=== PATIENT | male | born 1965 | race Caucasian/White ===

== ENCOUNTER 2017-09-18 18:10 | Inpatient (IN) | payer OTHER, SELFPAY ==
[2017-09-18] VITALS (17 sets, daily range): BP systolic 81–127; BP diastolic 53–79; PULSE 71–86; RESP 12–19; TEMP 36.5–36.7; O2SAT 93–100; BMI 33.5; BMI 33.6; BMI 33.7
--- NOTE | 2017-09-18 18:32 | CT_ITS ---
STUDY: CT BRAIN WITHOUT CONTRAST REASON FOR EXAM: Male, 52 years old. Weakness. Hyperglycemia. RADIATION DOSAGE (If Supplied By Facility): CTDIvol = ( 44.99 ) mGy, DLP = ( 846.73 ) mGycm TECHNIQUE: Transaxial CT imaging of the brain was performed without administration of intravenous contrast material. Individualized dose optimization techniques were used for this CT. COMPARISON: None. FINDINGS: There is no definite acute abnormality. There is diffuse mild symmetric atrophy. There is atrophy of the posterior fossa structures. There is diffuse small vessel ischemic disease of the white matter. There is no definite acute infarct. There is no bleed. There is no gross mass, mass effect, or midline shift. There is no acute abnormality of the skull. No fractures. Grossly normal orbits. Grossly normal sinuses. CT/Brain/Head without Contrast IMPRESSION: Chronic age related changes and atrophy. No acute abnormality. Electronically Signed: Ciaran Velazquez MD at 19:42 EDT , Service support ,
--- NOTE | 2017-09-18 18:32 | RAD_ITS ---
STUDY: X-RAY CHEST REASON FOR EXAM: Male, 52 years old. General weakness and hyperglycemia. TECHNIQUE: Single AP portable view of the chest. COMPARISON: None. FINDINGS: The lungs are clear and expanded. Minimal scar across the left lung base. There is no demonstrated pleural abnormality. Normal size heart. Normal mediastinum and ivanna. Normal visualized pulmonary arteries. Normal visualized aortic arch and descending thoracic aorta. Normal visualized thoracic spine. Normal visualized ribs, clavicles, and shoulders. There is no demonstrated abnormality of the visualized soft tissue structures of the upper abdomen. RAD/Chest 1 View (Portable) IMPRESSION: Normal x-ray examination of the chest. Electronically Signed: Ciaran Velazquez MD at 18:53 EDT , Service support ,
--- NOTE | 2017-09-18 18:32 | EKG12_ITS ---
Test Reason : HYPERGLYCEMIA Blood Pressure : / mmHG Vent. Rate : 084 BPM Atrial Rate : 084 BPM P-R Int : 140 ms QRS Dur : 110 ms QT Int : 398 ms P-R-T Axes : 022 008 038 degrees QTc Int : 470 ms Normal sinus rhythm Normal ECG Confirmed by ARLENE QUIGLEY, NASIR ([id number]), editor magazine DONNA MERCER ([id number] on 09/20/2017 9:56:17 AM Referred By: MILADIS Confirmed By:NASIR JACOBS MD
[2017-09-18] MEDS: 0.9% Normal Saline 1,000 ML 999 ML IV (18:42)
[2017-09-18 18:50] LABS: Absolute Lymphocyte Count 1.62 X10^3/ul (0.83-4.51); Absolute Neutrophil Count 8.2 X10^3/uL (2.0-7.7); Basophil# 0.01 X10^3/uL; Basophil% 0.1 % (0-1); Eosinophil# 0.11 X10^3/uL; Hemoglobin 13.1 g/dl (13.0-16.5); Lymphocyte # 1.62 X10^3/ul (4.0); Lymphocyte % 15.1 % (19-41); Mean Corp Hgb Conc 32.8 g/gl (32-36); Mean Corpuscular Hgb 24.7 pg (27.0-32.0); Mean Corpuscular Volume 75.5 fL (80-94); Monocyte# 0.74 X10^3/uL; Monocyte% 6.9 % (0-10); Neutrophil # 8.23 X10^3/uL (2.7-7.7); Neutrophil % 76.5 % (47-70); Platelet Count 279 K/mm3 (150-450); RBC Distribution Width CV 14.9 % (11.6-14.6); RBC Distribution Width SD 40.4 fl (35.1-43.9); White Blood Count 10.8 K/mm3 (4.4-11.0)
[2017-09-18 18:53] LABS: POSITIVE COUNT NO; POSITIVE DIFFERENTIAL NO; POSITIVE MORPHOLOGY NO
[2017-09-18 19:04] LABS: International Normalized Ratio 1.1
[2017-09-18 19:05] LABS: Partial Thromboplast Time 26.4 Seconds (24.1-36.2)
[2017-09-18 19:07] LABS: ALB/GLOB Ratio 1.1 RATIO (0.9-2.4); AST(SGOT) 9 U/L (15-37); Alanine Aminotransfer ALT/SGPT 28 U/L (16-61); Albumin, Serum 3.4 g/dL (3.2-5.0); Alkaline Phosphatase 104 U/L (45-117); Anion Gap 11 (5-15); BUN 34 mg/dL (7-18); Calcium,Total 8.6 mg/dL (8.5-10.1); Chloride 104 mmol/L (98-107); Creatinine, Serum 1.79 mg/dL (0.70-1.30); EST Glomerular Filtration Rate 43 mL/min (>60); Est Glom Filt Rate - Afr Amer 51 mL/min (>60); Globulin 3.2 g/dL (2.2-4.2); Glucose 356 mg/dL (74-106); Potassium 4.5 mmol/L (3.5-5.1); Protein, Total 6.6 g/dL (6.4-8.2); Sodium Level 132 mmol/L (136-145)
[2017-09-18 19:11] LABS: Allen Test POS; Base Excess -12 mmol/L (-2 to +2); Bicarbonate 14.1 mmol/L (22-26); Blood Gas Specimen Type ART; O2 Delivery Device Room Air; PO2 82 mmHG (75-100); SITE R Radial; SO2 95 % (95-99); Time Given 1903; Total Carbon Dioxide 15 mmol/L; pCO2 29.6 mmHg (35-45); pH 7.29 (7.35-7.45)
[2017-09-18 19:21] LABS: Bacteria 0 SEEN /hpf (None Seen); Mucous, Urine 0 SEEN /hpf (<or=2+); Red Blood Cells-Urine 0 SEEN /hpf (0-5); Squamous Epithelial Cells - UA 0 SEEN /hpf (0-5); White Blood Cells 0 SEEN /hpf (0-5)
[2017-09-18 19:22] LABS: Color, Urine Yellow (Yellow); Glucose, Dipstick 250 mg/dl (Normal); Ketone-Dipstick 5 mg/dl (Negative); Leukocyte Esterase-Dipstick 25 /ul (Negative); Nitrite-Dipstick Negative (Negative); Occult Blood-Urine Negative /ul (Negative); Protein-Dipstick 100 mg/dl (Negative); Specific Gravity, Urine 1.025 (1.002-1.030); Urine Clarity Clear (Clear); Urine Urobilinogen Normal (Normal)
[2017-09-18 19:24] LABS: Urine Bilirubin Dipstick 1 mg/dL (Negative)
[2017-09-18 19:24] LABS: Lactic Acid 2.5 mmol/L (0.4-2.0)
[2017-09-18 19:27] LABS: Hyaline Cast 10-25 SEEN /lpf (0-5)
[2017-09-18 21:05] LABS: Bedside Glucose 339 mg/dL (70-110)
--- NOTE | 2017-09-18 21:28 | HP.PCM_ITS ---
Problem List (1) DKA (diabetic ketoacidoses) Status: Acute (2) Hyperglycemia Status: Acute (3) DMII (diabetes mellitus, type 2) Status: Acute (4) Lactic acid acidosis Status: Acute History of Present Illness Date of Admission: 09/18/17 Chief Complaint: Hyperglycemia The patient is a 52 year old male w/ h/o HTN, lipidemia, and DMII admitted for DKA. Pt has not been compliant w/ his meds for the past few weeks to months. His blood sugars have been in the 500s because he does not take his insulin. Today his sugar was greater than 600 and he doubled his short acting insulin and took his long acting insulin. However, he felt weak throughout the day. Nothing appeared to make it better or worse. He also has a headache. Headache was worse when he stood up. Slight improvement when he lied back down. Given that his fatigue was not improving, he went to the ED for further workup. No fever. No chill. No diarrhea. No rash. Past Medical History Allergies lisinopril Adverse Reaction (Verified 09/18/17 18:15) Other COUGH Home Medications: Ambulatory Orders Medication Instructions Recorded Albuterol Sulfate [Proair 90 mcg IH Q6H PRN PRN 09/18/17 [place]] Atorvastatin Calcium [Lipitor] 20 mg PO QHS 09/18/17 Carvedilol [Coreg] 25 mg PO BID 09/18/17 Cyanocobalamin (Vitamin B-12) 1,000 mcg PO DAILY 09/18/17 [Vitamin B-12] Ergocalciferol [Vitamin D] 50,000 unit PO QODAY 09/18/17 Fluticasone 0.05% [Flonase Nasal 1 spray NASAL DAILY 09/18/17 [place]] Furosemide 40 mg PO PRN PRN 09/18/17 Gabapentin [Neurontin] 300 mg PO TID 09/18/17 Insulin Degludec [Tresiba 20 unit SQ DAILY 09/18/17 Flextouch U-100] Insulin Lispro [Humalog] 20 unit SQ TID 09/18/17 [place] Carbonate [Lithotab, 300 mg PO DAILY 09/18/17 [place]] Losartan Potassium [Cozaar] 100 mg PO DAILY 09/18/17 Metformin HCl [Glucophage] 1,000 mg PO BIDCM 09/18/17 Metoclopramide [Reglan] 10 mg PO 4X/DAY 09/18/17 Omeprazole 20 mg PO DAILY 09/18/17 Sertraline HCl [Zoloft] 75 mg PO DAILY 09/18/17 Spironolactone 25 mg PO DAILY 09/18/17 Zolpidem Tartrate [Ambien 5 mg PO QHS PRN PRN 09/18/17 (Generic)] Surgical History: no surgical history Lives: Spouse/ Significant Other Smoking Status: Never smoker Alcohol: None Drugs: None - *Family History Maternal History Items: No pertinent history Review of Systems Constitutional: Reports: Malaise, Weakness, Fatigue. Denies: Chills, Fever, Weight Change HEENT: Denies: Head Aches, Sinus Congestion, Sinus Drainage Cardiovascular: Denies: Chest Pain, Palpitations Respiratory: Denies: Cough, Shortness of breath at rest, Sputum production Gastrointestinal: Denies: Abdominal Pain, Nausea, Vomiting Genitourinary: Denies: Dysuria Musculoskeletal: Denies: Joint Pain, Joint Tenderness Skin: Denies: Rash, Wounds Neurological: Denies: Numbness, Tingling, Focal weakness Psychiatric: Denies: Anxiety, Depression, Homicidal Ideations, Suicidal Ideations Hematologic/ Lymphatic: Denies: Easy Bruising, Easy Bleeding VTE Information - Inpt Only VTE Present on Admission: No VTE Mechan Device Prophylaxis: SCD's VTE Pharm Prophylaxis ordered?: Yes Patient Problems: Active and Suspected Problems DKA (diabetic ketoacidoses) (Acute) Hyperglycemia (Acute) DMII (diabetes mellitus, type 2) (Acute) Lactic acid acidosis (Acute) - Physical Exam General: Alert, Oriented x3, Cooperative HEENT: Atraumatic, PERRLA, EOMI, Normocephalic Neck: Supple, No JVD, Negative Carotid Bruits Lungs: Clear to auscultation, Normal air movement Cardiovascular: Regular rate, No murmurs Abdomen: Bowel Sounds Present, Soft, Non Tender Extremities: No edema, Capillary Refill Less than 3 Seconds Skin: No rashes, No breakdown Musculoskeletal: No Tenderness to Palpation of Joints or Extremities Neurological: Cranial nerves II-XII grossly intact Psych/Mental Status: Normal Affect, Appropriate Vital Signs Temp Pulse Resp BP Pulse Ox 97.7 F L 75 19 H 103/63 99 09/18/17 18:37 09/18/17 21:08 09/18/17 21:08 09/18/17 21:08 09/18/17 21:08 Oxygen Delivery Method Room Air Weight: 100 kg Body Mass Index (BMI) 33.5 Finger Stick Blood Glucose 339 Laboratory Tests Past 24 Hrs 09/18/17 09/18/17 09/18/17 18:37 18:37 18:37 WBC 10.8 RBC 5.30 Hgb 13.1 Hct 40.0 MCV 75.5 L MCH 24.7 L MCHC 32.8 RDW 14.9 H RDW Differential 40.4 Plt Count 279 MPV 10.0 Immature Gran % (Auto) 0.400 Neut % (Auto) 76.5 H Lymph % (Auto) 15.[address] % (Auto) 6.9 Eos % (Auto) 1.0 Baso % (Auto) 0.1 Absolute Neuts (auto) 8.2 H Absolute Lymphs (auto) 1.62 Total Counted Not Reportable PT 14.0 INR 1.1 APTT 26.4 Specimen Type Sample Site pH Bicarbonate Actual POC Total CO2 Base Excess O2 Saturation ABG pCO2 ABG pO2 Michael Test O2 Delivery Device Blood Gas Notified Whom Blood Gas Notified Time Sodium 132 L Potassium 4.5 Chloride 104 Carbon Dioxide 17.0 L Anion Gap 11 BUN 34 H Creatinine 1.79 H Estim Creat Clear Calc 46.70 Est GFR (MDRD) Af Amer 51 L Est GFR (MDRD) Non-Af 43 L BUN/Creatinine Ratio 19.0 Glucose 356 H Lactic Acid Calcium 8.6 Total Bilirubin 0.40 AST 9 L ALT 28 Alkaline Phosphatase 104 Troponin I < 0.015 Total Protein 6.6 Albumin 3.4 Globulin 3.2 Albumin/Globulin Ratio 1.1 Urine Color Urine Clarity Urine pH Ur Specific [place] Urine Protein Urine Glucose (UA) Urine Ketones Urine Occult Blood Urine Nitrite Urine Bilirubin Urine Urobilinogen Ur Leukocyte Esterase Urine RBC Urine WBC Ur Squamous Epith Cells Urine Bacteria Hyaline Casts Urine Mucus Acetone Level 09/18/17 09/18/17 09/18/17 18:37 18:37 19:05 WBC RBC Hgb Hct MCV MCH MCHC RDW RDW Differential Plt Count MPV Immature Gran % (Auto) Neut % (Auto) Lymph % (Auto) [facility] % (Auto) Eos % (Auto) Baso % (Auto) Absolute Neuts (auto) Absolute Lymphs (auto) Total Counted PT INR APTT Specimen Type ART Sample Site R Radial pH 7.29 L Bicarbonate Actual 14.1 L POC Total CO2 15 Base Excess -12 L O2 Saturation 95 ABG pCO2 29.6 L ABG pO2 82 Michael Test POS O2 Delivery Device Room Air Blood Gas Notified Whom ED Blood Gas Notified Time 190 Sodium Potassium Chloride Carbon Dioxide Anion Gap BUN Creatinine Estim Creat Clear Calc Est GFR (MDRD) Af Amer Est GFR (MDRD) Non-Af BUN/Creatinine Ratio Glucose Lactic Acid 2.5 H Calcium Total Bilirubin AST ALT Alkaline Phosphatase Troponin I Total Protein Albumin Globulin Albumin/Globulin Ratio Urine Color Urine Clarity Urine pH Ur Specific [place] Urine Protein Urine Glucose (UA) Urine Ketones Urine Occult Blood Urine Nitrite Urine Bilirubin Urine Urobilinogen Ur Leukocyte Esterase Urine RBC Urine WBC Ur Squamous Epith Cells Urine Bacteria Hyaline Casts Urine Mucus Acetone Level NEGATIVE 09/18/17 19:15 WBC RBC Hgb Hct MCV MCH MCHC RDW RDW Differential Plt Count MPV Immature Gran % (Auto) Neut % (Auto) Lymph % (Auto) [facility] % (Auto) Eos % (Auto) Baso % (Auto) Absolute Neuts (auto) Absolute Lymphs (auto) Total Counted PT INR APTT Specimen Type Sample Site pH Bicarbonate Actual POC Total CO2 Base Excess O2 Saturation ABG pCO2 ABG pO2 Michael Test O2 Delivery Device Blood Gas Notified Whom Blood Gas Notified Time Sodium Potassium Chloride Carbon Dioxide Anion Gap BUN Creatinine Estim Creat Clear Calc Est GFR (MDRD) Af Amer Est GFR (MDRD) Non-Af BUN/Creatinine Ratio Glucose Lactic Acid Calcium Total Bilirubin AST ALT Alkaline Phosphatase Troponin I Total Protein Albumin Globulin Albumin/Globulin Ratio Urine Color Yellow Urine Clarity Clear Urine pH 5.0 Ur Specific [place] 1.025 Urine Protein 100 H Urine Glucose (UA) 250 H Urine Ketones 5 H Urine Occult Blood Negative Urine Nitrite Negative Urine Bilirubin 1 H Urine Urobilinogen Normal Ur Leukocyte Esterase 25 H Urine RBC 0 SEEN Urine WBC 0 SEEN Ur Squamous Epith Cells 0 SEEN Urine Bacteria 0 SEEN Hyaline Casts 10-25 SEEN Urine Mucus 0 SEEN Acetone Level POC Glucose 09/18/17 21:01 POC Glucose 339 H Assessment/Plan All Active Problems DKA (diabetic ketoacidoses) (Acute) Hyperglycemia (Acute) DMII (diabetes mellitus, type 2) (Acute) Lactic acid acidosis (Acute) 52 year old male w/ h/o HTN, lipidemia, and DMII admitted for DKA. 1) DKA: Early DKA noted. Urine disclosed ketones. Metabolic acidosis noted. Hyperglycemia noted. Will start insulin gtt. Aggressive hydration. Serial labs. 2) Lactic acidosis: Probably secondary to hypoperfusion secondary to hypovolemia secondary to osmotic diuresis. Hydration. Cultures pending. No antibiotic at this time given no e/o infection. 3) DMII: Will resume home insulin when off insulin gtt. Monitor. 4) HTN: Resume home meds once SBP improves. Monitor. 5) Hypokalemia: Replaced. Serial labs. 6) Prophylaxis: SCD / heparin.
[2017-09-18 21:42] LABS: Reflex Lactate? Y
[2017-09-18 22:31] LABS: Bedside Glucose 399 mg/dL (70-110)
[2017-09-18] MEDS: 0.9% NaCl Peripheral Flush Adult/Peds IV (23:10)
[2017-09-18] MEDS: Heparin Injection (Vial) 5,000 UNIT/ML VIAL 5000 UNIT SC (23:11)
[2017-09-18] MEDS: 0.9% Normal Saline 1,000 ML 250 ML IV (23:11)
[2017-09-18 23:24] LABS: Hematocrit 26.3 % (40-54); Hemoglobin 8.5 g/dl (13.0-16.5); Mean Corp Hgb Conc 32.3 g/gl (32-36); Mean Corpuscular Hgb 24.8 pg (27.0-32.0); Mean Corpuscular Volume 76.7 fL (80-94); Mean Platelet Vol. 9.5 fl (6.2-12.0); Platelet Count 185 K/mm3 (150-450); RBC Distribution Width SD 42.3 fl (35.1-43.9); Red Blood Count 3.43 M/mm3 (4.6-6.2); Scan Indicated on CBC? Y/N NO; White Blood Count 7.7 K/mm3 (4.4-11.0)
[2017-09-18 23:26] LABS: Anion Gap 11 (5-15); BUN 34 mg/dL (7-18); BUN/Creat Ratio 22.5 RATIO (10-20); Calcium,Total 7.2 mg/dL (8.5-10.1); Chloride 112 mmol/L (98-107); Creatinine, Serum 1.51 mg/dL (0.70-1.30); EST Glomerular Filtration Rate 52 mL/min (>60); Est Glom Filt Rate - Afr Amer 63 mL/min (>60); Estimated Creatinine Clearance 55.36 ml/min; Glucose 373 mg/dL (74-106); Sodium Level 140 mmol/L (136-145)
[2017-09-18 23:36] LABS: Bedside Glucose 401 mg/dL (70-110)
[2017-09-18] MEDS: Gabapentin 300 MG Capsule PO (23:36)
[2017-09-18] MEDS: Atorvastatin Calcium 20 MG Tablet PO (23:37)
[2017-09-18] MEDS: Metoclopramide 10 MG Tablet PO (23:37)
[2017-09-18 23:46] LABS: Anion Gap 10 (5-15); BUN 37 mg/dL (7-18); BUN/Creat Ratio 20.6 RATIO (10-20); Calcium,Total 8.3 mg/dL (8.5-10.1); Chloride 107 mmol/L (98-107); EST Glomerular Filtration Rate 42 mL/min (>60); Est Glom Filt Rate - Afr Amer 51 mL/min (>60); Estimated Creatinine Clearance 46.44 ml/min; Glucose 412 mg/dL (74-106); Potassium 4.6 mmol/L (3.5-5.1); Sodium Level 134 mmol/L (136-145)
[2017-09-18 23:47] LABS: Lactic Acid 2.5 mmol/L (0.4-2.0)
[2017-09-19] VITALS (14 sets, daily range): BP systolic 97–131; BP diastolic 67–96; PULSE 67–88; RESP 12–75; TEMP 36.3–36.7; O2SAT 95–99
[2017-09-19 00:10] LABS: M R Staph aureus DNA By PCR Negative (Negative); Probe Check PASS; Specimen Processing Control PASS
[2017-09-19] MEDS: Carvedilol 25 MG Tablet PO ×2 (00:43→09:16)
[2017-09-19 01:46] LABS: Bedside Glucose 341 mg/dL (70-110)
[2017-09-19 02:50] LABS: Bedside Glucose 363 mg/dL (70-110)
[2017-09-19 03:10] LABS: Bedside Glucose 283 mg/dL (70-110)
[2017-09-19 03:19] LABS: Anion Gap 9 (5-15); BUN 36 mg/dL (7-18); BUN/Creat Ratio 23.8 RATIO (10-20); Chloride 111 mmol/L (98-107); Creatinine, Serum 1.51 mg/dL (0.70-1.30); EST Glomerular Filtration Rate 52 mL/min (>60); Est Glom Filt Rate - Afr Amer 63 mL/min (>60); Estimated Creatinine Clearance 55.36 ml/min; Glucose 288 mg/dL (74-106); Potassium 4.5 mmol/L (3.5-5.1); Sodium Level 139 mmol/L (136-145)
[2017-09-19 03:50] LABS: Bedside Glucose 232 mg/dL (70-110)
[2017-09-19 04:40] LABS: Bedside Glucose 215 mg/dL (70-110)
[2017-09-19 05:40] LABS: Bedside Glucose 148 mg/dL (70-110)
[2017-09-19] MEDS: Heparin Injection (Vial) 5,000 UNIT/ML VIAL 5000 UNIT SC (06:18)
[2017-09-19] MEDS: Gabapentin 300 MG Capsule PO (06:18)
[2017-09-19 06:21] LABS: Anion Gap 8 (5-15); BUN 34 mg/dL (7-18); BUN/Creat Ratio 25.4 RATIO (10-20); Calcium,Total 8.2 mg/dL (8.5-10.1); Chloride 114 mmol/L (98-107); Creatinine, Serum 1.34 mg/dL (0.70-1.30); EST Glomerular Filtration Rate 59 mL/min (>60); Est Glom Filt Rate - Afr Amer 72 mL/min (>60); Estimated Creatinine Clearance 62.39 ml/min; Glucose 154 mg/dL (74-106); Sodium Level 141 mmol/L (136-145)
[2017-09-19 06:49] LABS: Bedside Glucose 139 mg/dL (70-110)
[2017-09-19] MEDS: 0.9% Normal Saline 1,000 ML 150 ML IV (07:56)
[2017-09-19 08:00] LABS: Bedside Glucose 166 mg/dL (70-110)
[2017-09-19] MEDS: Insulin Lispro 100 UNIT/ML INSULN.PEN 20 UNIT SC (08:07)
--- NOTE | 2017-09-19 08:41 | PCM.PN.HOSP ---
Patient Problems: Active and Suspected Problems DKA (diabetic ketoacidoses) (Acute) Hyperglycemia (Acute) DMII (diabetes mellitus, type 2) (Acute) Lactic acid acidosis (Acute) Subjective: Feeling well. Patient states that he is essentially been in denial about his diabetes and checking his blood sugar when he feels like it and not taking his insulin schedule. Patient Aly was understanding of the consequences of not following his diabetes appropriately in the short-term as well as long-term. Vitals/I&O's: Vital Signs Temp Pulse Resp BP Pulse Ox 36.3 C L 67 12 111/73 99 09/19/17 08:00 09/19/17 08:00 09/19/17 08:00 09/19/17 08:00 09/19/17 08:00 Oxygen Delivery Method Room Air Weight: 101.2 kg Body Mass Index (BMI) 33.6 Finger Stick Blood Glucose 148 Intake and Output for Last 24 Hours 09/17/17 09/18/17 09/19/17 23:59 23:59 23:59 Intake Total 125 / 125 1821 / 1821 Output Total 0 / 0 400 / 400 Balance 125 / 125 1421 / 1421 General: Alert, No apparent distress HEENT: Atraumatic, Normocephalic Psych/Mental Status: Normal Affect, Appropriate Laboratory Results 09/18/17 22:10: MRSA (PCR) Negative 09/18/17 22:25: POC Glucose 399 H 09/18/17 22:30: Troponin I < 0.015 09/18/17 22:30: Sodium 140, Potassium 4.0, Chloride 112 H, Carbon Dioxide 17.0 L, Anion Gap 11, BUN 34 H, Creatinine 1.51 H, Estim Creat Clear Calc 55.36, Est GFR (MDRD) Af Amer 63, Est GFR (MDRD) Non-Af 52 L, BUN/Creatinine Ratio 22.5 H, Glucose 373 H, Calcium 7.2 L 09/18/17 23:00: Lactic Acid 2.5 H 09/18/17 23:00: Sodium 134 L, Potassium 4.6, Chloride 107, Carbon Dioxide 17.0 L, Anion Gap 10, BUN 37 H, Creatinine 1.80 H, Estim Creat Clear Calc 46.44, Est GFR (MDRD) Af Amer 51 L, Est GFR (MDRD) Non-Af 42 L, BUN/Creatinine Ratio 20.6 H, Glucose 412 H, Calcium 8.3 L, Troponin I < 0.015 09/18/17 23:00: WBC 7.7, RBC 3.43 L, Hgb 8.5 L, Hct 26.3 L, MCV 76.7 L, MCH 24.8 L, MCHC 32.3, RDW 15.0 H, RDW Differential 42.3, Plt Count 185, MPV 9.5 09/18/17 23:27: POC Glucose 401 H 09/19/17 00:42: POC Glucose 363 H 09/19/17 01:39: POC Glucose 341 H 09/19/17 02:48: POC Glucose 283 H 09/19/17 02:50: Sodium 139, Potassium 4.5, Chloride 111 H, Carbon Dioxide 19.0 L, Anion Gap 9, BUN 36 H, Creatinine 1.51 H, Estim Creat Clear Calc 55.36, Est GFR (MDRD) Af Amer 63, Est GFR (MDRD) Non-Af 52 L, BUN/Creatinine Ratio 23.8 H, Glucose 288 H, Calcium 8.0 L, Troponin I < 0.015 09/19/17 03:46: POC Glucose 232 H 09/19/17 04:32: POC Glucose 215 H 09/19/17 05:00: Sodium 141, Potassium 4.0, Chloride 114 H, Carbon Dioxide 19.0 L, Anion Gap 8, BUN 34 H, Creatinine 1.34 H, Estim Creat Clear Calc 62.39, Est GFR (MDRD) Af Amer 72, Est GFR (MDRD) Non-Af 59 L, BUN/Creatinine Ratio 25.4 H, Glucose 154 H, Calcium 8.2 L 09/19/17 05:32: POC Glucose 148 H 09/19/17 06:44: POC Glucose 139 H 09/19/17 07:52: POC Glucose 166 H Current Medications Albuterol Sulfate (Ventolin Aerosols) 2.5 mg INHALATION Q4H PRN PRN PRN Reason: SOB &/OR WHEEZING Atorvastatin Calcium (Lipitor) 20 mg PO QHS [facility] Last Admin: 09/18/17 23:37 Dose: 20 mg Carvedilol (Coreg) 25 mg PO BID [facility] Last Admin: 09/19/17 00:43 Dose: 25 mg Cyanocobalamin (Vitamin B12) 1,000 mcg PO DAILY [facility] Dextrose (D50w Syringe) 0 gm IV X1 PRN; Protocol PRN Reason: AGITATION Ergocalciferol (Vitamin D) 50,000 unit PO UD [facility] Fluticasone Propionate (Flonase Nasal [place]) 1 spray NASAL DAILY [facility] Gabapentin (Neurontin) 300 mg PO TID [facility] Last Admin: 09/19/17 06:18 Dose: 300 mg Heparin Sodium (Porcine) (Heparin Na) 5,000 unit SC Q8 [facility] Last Admin: 09/19/17 06:18 Dose: 5,000 units Sodium Chloride () 1,000 mls @ 150 mls/hr IV .Q6H40M [facility] Last Admin: 09/19/17 07:56 Dose: 150 mls/hr Insulin Glargine (Lantus (Bkc)) 20 units SC DAILY [facility] Insulin Human Lispro (Humalog Kwikpen (Bkc)) 20 unit SC 0800,1200,1700 [facility] Last Admin: 09/19/17 08:07 Dose: 20 u Metoclopramide HCl (Reglan) 10 mg PO 4X/DAY [facility] Last Admin: 09/18/17 23:37 Dose: 10 mg Pantoprazole Sodium (Protonix) 20 mg PO DAILY [facility] Sertraline HCl (Zoloft) 75 mg PO DAILY [facility] Sodium Chloride () 5 - 30 ml IV UD PRN PRN Reason: SALINE FLUSH Last Admin: 09/18/17 23:10 Dose: 10 ml Zolpidem Tartrate (Ambien (Generic)) 5 mg PO QHS PRN PRN PRN Reason: SLEEP Medical Necessity - Tobacco Use Smoking Status: Never smoker Tobacco Use: Non-smoker Assessment/Plan All Active Problems DKA (diabetic ketoacidoses) (Acute) Hyperglycemia (Acute) DMII (diabetes mellitus, type 2) (Acute) Lactic acid acidosis (Acute) 1. Diabetic ketoacidosis Secondary to noncompliance. Try to address barriers for the patient in regards to why he is not taking his insulin as he should. Poorly seemed that the patient is just in denial and perhaps thinking that he can just get over it. Expressed that the patient already has long-term comp occasions with diabetic neuropathy in his feet. Explained to him the other additional consequences in regards to kidney failure and heart disease amongst others. Told him that many of the long-term consequences of uncontrolled diabetes are irreversible but being on a proper regimen of insulin and with controlled blood sugars would help at least slow the progression of other processes. Patient expressed understanding of that and x-rays that he wishes to be more compliant. He states that he would like to follow-up with endocrinology. I will provide the patient some information to follow-up with nurse practitioner here over at the [facility] in regards to managing his diabetes. 2. Acute kidney injury Likely prerenal as patient's creatinine was 1.79 upon admission. Currently is 1.34 which qualifies patient is chronic kidney disease stage III. Outpatient follow-up in regards to the patient's labs as outpatient. 3. Anemia And had a drop in Ceclor from 13.1-8.5. I suspect that prior both these are lab air is a feel that both the white blood cells and platelets did drop down considerably. Though it should be noted that did appear to be microcytic on his parameters. Have patient get this followed up but also additional iron studies and for his primary care doctor.
--- NOTE | 2017-09-19 08:47 | PN_ITS ---
Patient Problems: Active and Suspected Problems DKA (diabetic ketoacidoses) (Acute) Hyperglycemia (Acute) DMII (diabetes mellitus, type 2) (Acute) Lactic acid acidosis (Acute) Subjective: Feeling well. Patient states that he is essentially been in denial about his diabetes and checking his blood sugar when he feels like it and not taking his insulin schedule. Patient Aly was understanding of the consequences of not following his diabetes appropriately in the short-term as well as long-term. Vitals/I&O's: Vital Signs Temp Pulse Resp BP Pulse Ox 36.3 C L 67 12 111/73 99 09/19/17 08:00 09/19/17 08:00 09/19/17 08:00 09/19/17 08:00 09/19/17 08:00 Oxygen Delivery Method Room Air Weight: 101.2 kg Body Mass Index (BMI) 33.6 Finger Stick Blood Glucose 148 Intake and Output for Last 24 Hours 09/17/17 09/18/17 09/19/17 23:59 23:59 23:59 Intake Total 125 / 125 1821 / 1821 Output Total 0 / 0 400 / 400 Balance 125 / 125 1421 / 1421 General: Alert, No apparent distress HEENT: Atraumatic, Normocephalic Psych/Mental Status: Normal Affect, Appropriate Laboratory Results 09/18/17 22:10: MRSA (PCR) Negative 09/18/17 22:25: POC Glucose 399 H 09/18/17 22:30: Troponin I < 0.015 09/18/17 22:30: Sodium 140, Potassium 4.0, Chloride 112 H, Carbon Dioxide 17.0 L , Anion Gap 11, BUN 34 H, Creatinine 1.51 H, Estim Creat Clear Calc 55.36, Est GFR (MDRD) Af Amer 63, Est GFR (MDRD) Non-Af 52 L, BUN/Creatinine Ratio 22.5 H, Glucose 373 H, Calcium 7.2 L 09/18/17 23:00: Lactic Acid 2.5 H 09/18/17 23:00: Sodium 134 L, Potassium 4.6, Chloride 107, Carbon Dioxide 17.0 L , Anion Gap 10, BUN 37 H, Creatinine 1.80 H, Estim Creat Clear Calc 46.44, Est GFR (MDRD) Af Amer 51 L, Est GFR (MDRD) Non-Af 42 L, BUN/Creatinine Ratio 20.6 H , Glucose 412 H, Calcium 8.3 L, Troponin I < 0.015 09/18/17 23:00: WBC 7.7, RBC 3.43 L, Hgb 8.5 L, Hct 26.3 L, MCV 76.7 L, MCH 24.8 L, MCHC 32.3, RDW 15.0 H, RDW Differential 42.3, Plt Count 185, MPV 9.5 09/18/17 23:27: POC Glucose 401 H 09/19/17 00:42: POC Glucose 363 H 09/19/17 01:39: POC Glucose 341 H 09/19/17 02:48: POC Glucose 283 H 09/19/17 02:50: Sodium 139, Potassium 4.5, Chloride 111 H, Carbon Dioxide 19.0 L , Anion Gap 9, BUN 36 H, Creatinine 1.51 H, Estim Creat Clear Calc 55.36, Est GFR (MDRD) Af Amer 63, Est GFR (MDRD) Non-Af 52 L, BUN/Creatinine Ratio 23.8 H, Glucose 288 H, Calcium 8.0 L, Troponin I < 0.015 09/19/17 03:46: POC Glucose 232 H 09/19/17 04:32: POC Glucose 215 H 09/19/17 05:00: Sodium 141, Potassium 4.0, Chloride 114 H, Carbon Dioxide 19.0 L , Anion Gap 8, BUN 34 H, Creatinine 1.34 H, Estim Creat Clear Calc 62.39, Est GFR (MDRD) Af Amer 72, Est GFR (MDRD) Non-Af 59 L, BUN/Creatinine Ratio 25.4 H, Glucose 154 H, Calcium 8.2 L 09/19/17 05:32: POC Glucose 148 H 09/19/17 06:44: POC Glucose 139 H 09/19/17 07:52: POC Glucose 166 H Current Medications Albuterol Sulfate (Ventolin Aerosols) 2.5 mg INHALATION Q4H PRN PRN PRN Reason: SOB &/OR WHEEZING Atorvastatin Calcium (Lipitor) 20 mg PO QHS [facility] Last Admin: 09/18/17 23:37 Dose: 20 mg Carvedilol (Coreg) 25 mg PO BID [facility] Last Admin: 09/19/17 00:43 Dose: 25 mg Cyanocobalamin (Vitamin B12) 1,000 mcg PO DAILY [facility] Dextrose (D50w Syringe) 0 gm IV X1 PRN; Protocol PRN Reason: AGITATION Ergocalciferol (Vitamin D) 50,000 unit PO UD [facility] Fluticasone Propionate (Flonase Nasal [place]) 1 spray NASAL DAILY [facility] Gabapentin (Neurontin) 300 mg PO TID [facility] Last Admin: 09/19/17 06:18 Dose: 300 mg Heparin Sodium (Porcine) (Heparin Na) 5,000 unit SC Q8 [facility] Last Admin: 09/19/17 06:18 Dose: 5,000 units Sodium Chloride () 1,000 mls @ 150 mls/hr IV .Q6H40M [facility] Last Admin: 09/19/17 07:56 Dose: 150 mls/hr Insulin Glargine (Lantus (Bkc)) 20 units SC DAILY [facility] Insulin Human Lispro (Humalog Kwikpen (Bkc)) 20 unit SC 0800,1200,1700 [facility] Last Admin: 09/19/17 08:07 Dose: 20 u Metoclopramide HCl (Reglan) 10 mg PO 4X/DAY [facility] Last Admin: 09/18/17 23:37 Dose: 10 mg Pantoprazole Sodium (Protonix) 20 mg PO DAILY [facility] Sertraline HCl (Zoloft) 75 mg PO DAILY [facility] Sodium Chloride () 5 - 30 ml IV UD PRN PRN Reason: SALINE FLUSH Last Admin: 09/18/17 23:10 Dose: 10 ml Zolpidem Tartrate (Ambien (Generic)) 5 mg PO QHS PRN PRN PRN Reason: SLEEP Medical Necessity - Tobacco Use Smoking Status: Never smoker Tobacco Use: Non-smoker Assessment/Plan All Active Problems DKA (diabetic ketoacidoses) (Acute) Hyperglycemia (Acute) DMII (diabetes mellitus, type 2) (Acute) Lactic acid acidosis (Acute) 1. Diabetic ketoacidosis * Secondary to noncompliance. * Try to address barriers for the patient in regards to why he is not taking his insulin as he should. Poorly seemed that the patient is just in denial and perhaps thinking that he can just get over it. Expressed that the patient already has long-term comp occasions with diabetic neuropathy in his feet. Explained to him the other additional consequences in regards to kidney failure and heart disease amongst others. Told him that many of the long-term consequences of uncontrolled diabetes are irreversible but being on a proper regimen of insulin and with controlled blood sugars would help at least slow the progression of other processes. Patient expressed understanding of that and x-rays that he wishes to be more compliant. * He states that he would like to follow-up with endocrinology. I will provide the patient some information to follow-up with nurse practitioner here over at the [facility] in regards to managing his diabetes. 2. Acute kidney injury * Likely prerenal as patient's creatinine was 1.79 upon admission. Currently is 1.34 which qualifies patient is chronic kidney disease stage III. * Outpatient follow-up in regards to the patient's labs as outpatient. 3. Anemia * And had a drop in Ceclor from 13.1-8.5. I suspect that prior both these are lab air is a feel that both the white blood cells and platelets did drop down considerably. Though it should be noted that did appear to be microcytic on his parameters. Have patient get this followed up but also additional iron studies and for his primary care doctor.
--- NOTE | 2017-09-19 08:50 | PCM.DC ---
- Discharge Diagnoses Current Active Problems: Current Active and Chronic Problems DKA (diabetic ketoacidoses) (Acute) Hyperglycemia (Acute) DMII (diabetes mellitus, type 2) (Acute) Lactic acid acidosis (Acute) You will use the following diet at home:: Calorie/Carbohydrate Controlled (specify 1200, 1400, etc) - 1800 kcal/day Your food should be the consistency of: Regular Your liquids should be the consistency of: Regular/Thin Discharge Activity: Return to Normal Activity Call your doctor if you observe: Fever of 101 or Higher, Fainting spells, - - uncontrolled blood sugars Instructions: What Is Type 2 Diabetes?, How to Check Your Blood Sugar, Using Injected Insulin, Diabetes: Understanding Carbohydrates, Eating Out When You Have Diabetes, Diabetes: Inspecting Your Feet, Diabetes: Keeping Feet Healthy, Diabetes: Sick-Day Plan, Diabetes and Kidney Disease Allergies/Adverse Reactions: Allergies lisinopril Adverse Reaction (Verified 09/18/17 18:15) Other COUGH Medications to take at Discharge Albuterol Sulfate [Proair Respiclick] 90 mcg IH Q6H PRN PRN 09/18/17 Atorvastatin Calcium [Lipitor] 20 mg PO QHS 09/18/17 Carvedilol [Coreg (Beta Yulisa)] 25 mg PO BID 09/18/17 Cyanocobalamin (Vitamin B-12) [Vitamin B-12] 1,000 mcg PO DAILY 09/18/17 Ergocalciferol [Vitamin D] 50,000 unit PO QODAY 09/18/17 Fluticasone 0.05% [Flonase Nasal [place]] 1 spray NASAL DAILY 09/18/17 Furosemide 40 mg PO PRN PRN 09/18/17 Gabapentin [Neurontin] 300 mg PO TID 09/18/17 Insulin Degludec [Tresiba Flextouch U-100] 20 unit SQ DAILY 09/18/17 Insulin Lispro [Humalog] 20 unit SQ TID 09/18/17 [place] Carbonate [Eskalith] 300 mg PO DAILY 09/18/17 Losartan Potassium [Cozaar] 100 mg PO DAILY 09/18/17 Metformin HCl [Glucophage] 1,000 mg PO BIDCM 09/18/17 Metoclopramide [Reglan] 10 mg PO 4X/DAY 09/18/17 Omeprazole 20 mg PO DAILY 09/18/17 Sertraline HCl [Zoloft] 75 mg PO DAILY 09/18/17 Spironolactone 25 mg PO DAILY 09/18/17 Zolpidem Tartrate [Ambien] 5 mg PO QHS PRN PRN 09/18/17 Primary Care Physician: Dominique Martin MD [Primary Care Provider] - Within 2 Weeks Please Follow Up With: Lizz He [facility] CONSULTANT[facility]etrio[facility] - Endocrinology When: 2-4 weeks Proposed Discharge Date: 09/19/17
--- NOTE | 2017-09-19 08:54 | DS.PCM_ITS ---
Discharge Date and Diagnosis - Problem List Patient Problems: Active and Suspected Problems DKA (diabetic ketoacidoses) (Acute) Hyperglycemia (Acute) DMII (diabetes mellitus, type 2) (Acute) Lactic acid acidosis (Acute) Date of Admission: 09/18/17 Date of Discharge: 09/19/17 - Primary Discharge Diagnosis Active and Suspected Problems DKA (diabetic ketoacidoses) (Acute) Hyperglycemia (Acute) DMII (diabetes mellitus, type 2) (Acute) Lactic acid acidosis (Acute) Hospital Course and Treatment Imaging Results: Clinical Impression(s) from Imaging Studies Brain CT 09/18/17 18:32 IMPRESSION: Chronic age related changes and atrophy. No acute abnormality. Electronically Signed: Ciaran Velazquez MD at 19:42 EDT , Service support , Chest X-Ray 09/18/17 18:32 IMPRESSION: Normal x-ray examination of the chest. Electronically Signed: Ciaran Velazquez MD at 18:53 EDT , Service support , Operations: None Procedures: None Summary of Care Provided: The patient is a 52 year old M presents with DKA 1. Diabetic ketoacidosis * Secondary to noncompliance. * Try to address barriers for the patient in regards to why he is not taking his insulin as he should. Poorly seemed that the patient is just in denial and perhaps thinking that he can just get over it. Expressed that the patient already has long-term comp occasions with diabetic neuropathy in his feet. Explained to him the other additional consequences in regards to kidney failure and heart disease amongst others. Told him that many of the long-term consequences of uncontrolled diabetes are irreversible but being on a proper regimen of insulin and with controlled blood sugars would help at least slow the progression of other processes. Patient expressed understanding of that and x-rays that he wishes to be more compliant. * He states that he would like to follow-up with endocrinology. I will provide the patient some information to follow-up with nurse practitioner here over at the [facility] in regards to managing his diabetes. 2. Acute kidney injury * Likely prerenal as patient's creatinine was 1.79 upon admission. Currently is 1.34 which qualifies patient is chronic kidney disease stage III. * Outpatient follow-up in regards to the patient's labs as outpatient. 3. Anemia * And had a drop in Ceclor from 13.1-8.5. I suspect that prior both these are lab air is a feel that both the white blood cells and platelets did drop down considerably. Though it should be noted that did appear to be microcytic on his parameters. Have patient get this followed up but also additional iron studies and for his primary care doctor.[] Discharge Diet: 1800 Calorie Control Diet Discharge Activity: Return to Normal Activity Call your doctor if you observe: Fever of 101 or Higher, Fainting spells, - - uncontrolled blood sugars Home Medications: Medications to take at Discharge Albuterol Sulfate [Proair Respiclick] 90 mcg IH Q6H PRN PRN 09/18/17 Atorvastatin Calcium [Lipitor] 20 mg PO QHS 09/18/17 Carvedilol [Coreg (Beta Yulisa)] 25 mg PO BID 09/18/17 Cyanocobalamin (Vitamin B-12) [Vitamin B-12] 1,000 mcg PO DAILY 09/18/17 Ergocalciferol [Vitamin D] 50,000 unit PO QODAY 09/18/17 Fluticasone 0.05% [Flonase Nasal [place]] 1 spray NASAL DAILY 09/18/17 Furosemide 40 mg PO PRN PRN 09/18/17 Gabapentin [Neurontin] 300 mg PO TID 09/18/17 Insulin Degludec [Tresiba Flextouch U-100] 20 unit SQ DAILY 09/18/17 Insulin Lispro [Humalog] 20 unit SQ TID 09/18/17 [place] Carbonate [Eskalith] 300 mg PO DAILY 09/18/17 Losartan Potassium [Cozaar] 100 mg PO DAILY 09/18/17 Metformin HCl [Glucophage] 1,000 mg PO BIDCM 09/18/17 Metoclopramide [Reglan] 10 mg PO 4X/DAY 09/18/17 Omeprazole 20 mg PO DAILY 09/18/17 Sertraline HCl [Zoloft] 75 mg PO DAILY 09/18/17 Spironolactone 25 mg PO DAILY 09/18/17 Zolpidem Tartrate [Ambien] 5 mg PO QHS PRN PRN 09/18/17 Primary Care Physician: Dominique Martin MD [Primary Care Provider] - Within 2 Weeks Please Follow Up With: Lizz He TORCH SOLDERER-C - Endocrinology When: 2-4 weeks Patient Instructions: What Is Type 2 Diabetes?, How to Check Your Blood Sugar, Using Injected Insulin, Diabetes: Understanding Carbohydrates, Eating Out When You Have Diabetes, Diabetes: Keeping Feet Healthy, Diabetes: Inspecting Your Feet, Diabetes: Sick-Day Plan, Diabetes and Kidney Disease Disposition: Home Minutes spent on discharge:: 32 Patient Condition:: Fair Medical Necessity - Tobacco Use Smoking Status: Never smoker Tobacco Use: Non-smoker Meaningful Use Info Meaningful Use Diagnoses (Choose all that apply): None applicable Code Visit Inpatient E&M: 92903 Disch Hosp
[2017-09-19] MEDS: Fluticasone 0.05% 1 SPRAY NASAL.SRY NASAL (09:16)
[2017-09-19] MEDS: Cyanocobalamin 500 MCG Tablet 1000 MCG PO (09:16)
[2017-09-19] MEDS: Sertraline 50 MG Tablet 75 MG PO (09:16)
[2017-09-19] MEDS: Pantoprazole Sodium 20 MG Tablet PO (09:16)
--- NOTE | 2017-09-19 10:16 | CASEMGMT ---
Addendum entered by Ira Villarreal 09/19/17 11:23: WAYNE MOJICA NOTE: Called pt at home. Spoke with pt and and informed them of appt scheduled with [facility] on October 13 at 1000 and phone number to her office given. Also spoke with pt about [facility]. Pt states he would be interested in the Diabetic Clinic calling him to set up an appt. This WAYNE MOJICA spoke with [facility] and informed them pt would like for them to call him and they were given pt phone number. Pt also given [facility] diabetic Clinic info. Carmelina MCKENNA RN, CM Original Note: WAYNE MOJICA NOTE: Went to speak with pt re: discharge planning, however, pt has been discharged. Call to [facility] made. Appt made. Will follow up with patient re: appt and information on Diabetic Clinic. Carmelina MCKENNA RN, CM
== END 2017-09-19 10:00 | disposition home or self-care (01) | DRG 638 ==
LOC: ED 19:06 → ICU 21:54 → PCU 09-19 07:23
PROVIDERS: Admitting Provider Internal Medicine; Emergency Provider Emergency Medicine; Family Provider Family Medicine; PCP Family Medicine
DX: E11.10 Type 2 diabetes mellitus with ketoacidosis without coma (principal); N17.9 Acute kidney failure, unspecified; Z79.4 Long term (current) use of insulin; E11.40 Type 2 diabetes mellitus with diabetic neuropathy, unspecified; Z91.14 Patient's other noncompliance with medication regimen; E11.22 Type 2 diabetes mellitus with diabetic chronic kidney disease; N18.3 Chronic kidney disease, stage 3 (moderate); I12.9 Hypertensive chronic kidney disease with stage 1 through stage 4 chronic kidney disease, or unspecified chronic kidney disease
CPT/HCPCS: 36600; 70450; 71045; 80048; 80053; 81001; 82009; 82803; 82962; 83605; 84484; 85025; 85027; 85610; 85730; 87040; 87641; 93005; 99283; J7030; A4216

== ENCOUNTER 2017-10-20 22:40 | Emergency (ER) | payer OTHER, SELFPAY ==
[2017-10-20 22:40] VITALS: BP 161/96; PULSE 74; RESP 16; TEMP 36.2; O2SAT 100; BMI 34.9
--- NOTE | 2017-10-20 22:49 | ED.VISSUMM ---
- ER Visit Summary Date of Service: 10/20/17 Chief Complaint: Rash History of Present Illness: The patient is a 52 M who presents with a rash. He has had this for 2 weeks. He states it itches. He denies any exposures. He is not using anything for it at all. Denies any fevers. No bleeding. Physical Examination: Vital signs are reviewed. Skin exam reveals a rash on the trunk and arm. There is no petechia or purpura. Test Results: None performed Emergency Department Course and Treatment: Patient will be treated with hydrocortisone cream and Vistaril. I do not think steroids are prudent as he was just admitted for diabetic ketoacidosis. He will need to follow-up with his PCP Treatment Plan: [] Disposition: Discharge Impression: Dermatitis This note was generated with [employer] dictation software. It may contain incorrect words, spelling, and punctuation that were not noted in review of the chart prior to signing ED Disposition - Plan for ED Patient: Chief Complaint: Rash Referrals: Dominique Martin MD [Primary Care Provider] -
--- NOTE | 2017-10-20 22:50 | ED.DEP ---
ED Disposition - Plan for ED Patient: Disposition: Home or Assisted Living Chief Complaint: Rash Instructions: ED Dermatitis Non Specific Rash Prescriptions: Hydrocortisone 2.5% Crm [Hytone] 1 applic TOPICAL BID PRN PRN #1 tube PRN Reason: Rash/Topical Irritation Hydroxyzine Pamoate [Vistaril] 50 mg PO TID PRN PRN #30 cap PRN Reason: Itching Referrals: Dominique Martin MD [Primary Care Provider] -
== END 2017-10-20 23:06 | disposition home or self-care (01) ==
PROVIDERS: Emergency Provider Emergency Medicine; Family Provider Family Medicine; PCP Family Medicine
DX: L30.9 Dermatitis, unspecified (principal); E11.9 Type 2 diabetes mellitus without complications; Z79.4 Long term (current) use of insulin; Z79.899 Other long term (current) drug therapy
CPT/HCPCS: 99282

== ENCOUNTER → 2018-05-17 10:24 | Outpatient (CLI) | payer OTHER, SELFPAY ==
[2018-05-17 09:46] VITALS: BMI 34.0
[2018-05-17 11:10] LABS: AST(SGOT) 10 U/L (15-37); Alanine Aminotransfer ALT/SGPT 28 U/L (16-61); Albumin, Serum 3.6 g/dL (3.2-5.0); Alkaline Phosphatase 112 U/L (45-117); Anion Gap 7 (5-15); BUN 24 mg/dL (7-18); BUN/Creat Ratio 20.3 RATIO (10-20); Calcium,Total 9.3 mg/dL (8.5-10.1); Chloride 104 mmol/L (98-107); Cholesterol 149 mg/dL (200); Creatinine, Serum 1.18 mg/dL (0.70-1.30); EST Glomerular Filtration Rate 69 mL/min (>60); Est Glom Filt Rate - Afr Amer 83 mL/min (>60); Globulin 3.5 g/dL (2.2-4.2); Glucose 323 mg/dL (74-106); High Density Lipoprotein 37 mg/dL; Potassium 4.6 mmol/L (3.5-5.1); Protein, Total 7.1 g/dL (6.4-8.2); Sodium Level 134 mmol/L (136-145); Triglycerides 395 mg/dL; Very Low Density Lipoprotein 79 mg/dL (5-40)
[2018-05-17 11:13] LABS: Hemoglobin A1c 10.7 % (4.2-6.3); Microalbumin:Creatinine Ratio 366.7 mg/g CRE (<30 mg/g CRE)
== END ==
PROVIDERS: Family Provider Family Medicine; Referring Provider Nurse Practitioner; Visit Provider Nurse Practitioner
DX: E11.9 Type 2 diabetes mellitus without complications (principal)
CPT/HCPCS: 36415; 80053; 80061; 82043; 82570; 83036

== ENCOUNTER 2018-09-25 13:43 | Emergency (ER) | payer OTHER, SELFPAY ==
[2018-05-17 09:46] VITALS: BMI 34.0
[2018-09-25 13:45] VITALS: BP 122/68; PULSE 91; RESP 18; TEMP 36.3; O2SAT 94; BMI 35.0
[2018-09-25] MEDS: oxyCODONE 5 MG Tablet PO (14:27)
[2018-09-25 14:46] LABS: Bacteria 0 SEEN /hpf (None Seen); Mucous, Urine 0 SEEN /hpf (<or=2+); Red Blood Cells-Urine 0 SEEN /hpf (0-5); Squamous Epithelial Cells - UA 0 SEEN /hpf (0-5); White Blood Cells 0 SEEN /hpf (0-5)
[2018-09-25 14:50] LABS: Color, Urine Yellow (Yellow); Glucose, Dipstick 1000 mg/dl (Normal); Ketone-Dipstick Negative (Negative); Leukocyte Esterase-Dipstick 100 /ul (Negative); Nitrite-Dipstick Negative (Negative); Occult Blood-Urine Negative /ul (Negative); Protein-Dipstick 15 mg/dl (Negative); Specific Gravity, Urine 1.015 (1.002-1.030); Urine Bilirubin Dipstick Negative (Negative); Urine Clarity Clear (Clear); Urine Urobilinogen Normal (Normal)
--- NOTE | 2018-09-25 14:50 | ED.DCSUM_ITS ---
- ER Visit Summary Date of Service: 09/25/18 Chief Complaint: Difficulty urinating, penile pain History of Present Illness: The patient is a 53 M with multiple comorbidities who presents to the emergency department with difficulty with urination and penile pain. Patient states that he had aggressive oral sex about a week ago. He states after, he began to have some lesions that he noticed on his penis. He states they are very painful. He states that he is having a difficult time urinating because of pain. He denies any fevers or chills. He has no history of sexually transmitted disease. He is sexually active with single partner. Patient is an insulin on a diabetic. He states his blood sugars been running normally. Physical Examination: Vital signs reviewed General: Well-nourished, well-developed Head: Normocephalic, atraumatic Eyes: Pupils equal and reactive, extraocular muscles intact Neck, supple, no lymphadenopathy Heart: Regular rate and rhythm Respiratory: No distress, clear bilaterally Abdomen: Soft, nontender, nondistended, no peritoneal signs : Patient has multiple small vesicular lesions on the shaft of the penis Consistent with herpes. Back: Nontender Extremities: Nontender, no edema, no cords Skin: Normal color no rash Neuro: Alert and oriented, no focal or lateralizing deficits Test Results: [] Emergency Department Course and Treatment: The patient has lesions that are cons istent with a primary herpes outbreak. I do feel this is was causing his pain. There is no cellulitis. He has no lymphadenopathy. I obtained a urine which was unremarkable. The patient will be treated with Valtrex and short course of analgesics. He will be discharged home. Treatment Plan: [] Disposition: Discharge Impression: 1. Primary herpes outbreak This note was generated with [employer] dictation software. It may contain incorrect words, spelling, and punctuation that were not noted in review of the chart prior to signing ED Disposition - Plan for ED Patient: Disposition: Home or Assisted Living Instructions: Herpes Prescriptions: Oxycodone HCl/Acetaminophen [Percocet 5/325] 1 tab PO Q6H PRN PRN 3 Days #12 tab PRN Reason: Pain Prescription Printed Valacyclovir HCl [Valtrex] 1,000 mg PO TID #21 tab Prescription Printed Referrals: Bjorn Perez Jr. [Primary Care Provider] -
[2018-09-25 15:40] VITALS: BP 106/70; PULSE 63; RESP 17
== END 2018-09-25 15:41 | disposition home or self-care (01) ==
LOC: ED 14:17
PROVIDERS: Emergency Provider Emergency Medicine; Family Provider Family Medicine; PCP Family Medicine
DX: A60.01 Herpesviral infection of penis (principal); E11.9 Type 2 diabetes mellitus without complications; Z79.4 Long term (current) use of insulin
CPT/HCPCS: 81001; 99283

== ENCOUNTER 2022-04-23 15:27 | Emergency (ER) | payer MEDICAID, SELFPAY ==
[2022-04-23 15:28] VITALS: PULSE 95; RESP 18; TEMP 36; O2SAT 96; BMI 33.7
--- NOTE | 2022-04-23 15:29 | EDS_ITS ---
HPI History of Present Illness Chief Complaint: Weakness Informant: patient and EMS Narrative Narrative: I did speak directly with the EMS personnel who brought the patient in to get their report on reason for call and transport. History is also obtained directly from the patient. I also reviewed prior charts including outpatient labs. We do not have many labs really since 2018 though. He was quite anemic then. I also looked his prior CT from that time that did not show any acute intracranial process but did show age-related changes. Patient states that he had a busy day. He had some doctors appointments. He then went out to eat at [employer] This is more activity than normal. He felt well all day. He felt at his baseline. When he was leaving [facility] he had trouble walking all the way out to the car. He states his legs just did not want to move. They felt heavy. This was equal on both sides. He was not presyncopal but he was concerned about falling due to having trouble getting his legs to move as directed. He states he has been having this problem for about 2 years. He was diagnosed with normal pressure hydrocephalus. Back in May 2021 they drained cerebrospinal fluid as a test and he did seem to get some benefit from this. They then did a shunt in August 2021. After the shunt he did not seem to really get much benefit. They have been trying to do adjustments since. He is due any day for a repeat adjustment. He sees neurosurgery and neurologist up at [facility]. He states he has been having this problem with telling his legs what to do and having appropriate response for 2 years. This was a slightly worse episode but he also had a much busier than average today and he does tire out very easily. 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 He states he gets dyspnea on exertion but this is at baseline and was not any different than normal. He has not had chest pain. He has not been sick recently with fevers chills coughing. No nausea vomiting diarrhea or. He gets some variable urinary changes related to NPH but these are not new. He never had numbness tingling. He had more stiffness with motion rather than weakness and that is his typical. He states that when he gets this at home he will just lay down and rest and it usually gets better over the hours or by the next day. He was stuck at the front entrance to a restaurant today and so they called EMS for him. [facility] Medical History (Updated 04/23/22 @ 18:[address] Jimy Andrew MD) Anemia Anxiety and depression Cardiomyopathy Cataracts, bilateral Diabetic gastroparesis Diastolic congestive heart failure Diverticulitis GERD (gastroesophageal reflux disease) High cholesterol High triglycerides HTN (hypertension) Kidney stones Neuropathy [place] (obstructive sleep apnea) Seasonal allergies Type 2 diabetes mellitus Home Medications atorvastatin 20 mg tablet 20 mg PO QHS 09/18/17 [History Last Taken Unknown] carvedilol 25 mg tablet 25 mg PO BID 09/18/17 [History Last Taken Unknown] cyanocobalamin (vitamin B-12) 1,000 mcg capsule 1,000 mcg PO DAILY 09/18/17 [History Last Taken Unknown] ergocalciferol (vitamin D2) 1,250 mcg (50,000 unit) capsule 50,000 unit PO QODAY 09/18/17 [History Last Taken Unknown] fluticasone propionate 50 mcg/actuation nasal spray,suspension 1 spray NASAL DAILY 09/18/17 [History Last Taken Unknown] furosemide 40 mg tablet 40 mg PO PRN PRN EDEMA 09/18/17 [History Last Taken Unknown] gabapentin 300 mg capsule 300 mg PO TID 09/18/17 [History Last Taken Unknown] lithium carbonate 300 mg tablet 300 mg PO DAILY 09/18/17 [History Last Taken Unknown] losartan 100 mg tablet 100 mg PO DAILY 09/18/17 [History Last Taken Unknown] metformin 1,000 mg tablet 1,000 mg PO BIDCM 09/18/17 [History Last Taken Unknown] metoclopramide HCl 10 mg tablet 10 mg PO 4X/DAY 09/18/17 [History Last Taken Unknown] omeprazole 20 mg capsule,delayed release 20 mg PO DAILY 09/18/17 [History Last Taken Unknown] sertraline 100 mg tablet 75 mg PO DAILY 09/18/17 [History Last Taken Unknown] spironolactone 25 mg tablet 25 mg PO DAILY 09/18/17 [History Last Taken Unknown] insulin degludec 100 unit/mL (3 mL) subcutaneous pen (Tresiba FlexTouch U-100 insulin) 30 unit (0.3 mL) subcut QDAY e11.9 #27 mL 04/06/18 [Rx Last Taken Unknown] insulin lispro 100 unit/mL subcutaneous pen (Humalog KwikPen (U-100) Insulin) 30 unit (0.3 mL) subcut TID e11.9 #81 mL 05/17/18 [Rx Last Taken Unknown] valacyclovir 1 gram tablet 1,000 mg PO TID #21 tabs 09/25/18 [Rx Last Taken Unknown] Allergy/AdvReac Type Severity Reaction Status Date / Time lisinopril AdvReac Other Verified 04/23/22 15:28 Surgical History H/O hernia repair Social History Smoking Status: Never smoker alcohol intake: current substance use type: does not use ROS ROS ED Constitutional Constitutional ED: Denies chills, fever(s) or subjective Eyes Eyes: Denies change in vision or diplopia ENT ENT ED: Denies rhinorrhea or sore throat Cardiovascular Cardiovascular: Denies chest pain, palpitations or racing heartbeat Respiratory/Chest Respiratory/Chest: Reports dyspnea on exertion Gastrointestinal Gastrointestinal: Denies diarrhea, nausea or vomiting Genitourinary Genitourinary ED: Reports urinary frequency Musculoskeletal Musculoskeletal: Reports other Details: Stiffness of muscles but no real pain. Integumentary Denies rash Neurologic Neurologic: Reports other Details: See history of present illness. ; Denies headache(s) Endocrine Endocrinology: Reports polydipsia and polyuria Allergic/Immunologic Allergic/Immunologic ED: Denies urticaria EXAM Physical Exam Const Vital Signs: 04/23/22 15:28 04/23/22 15:36 Temperature 96.8 F L Temperature Source Temporal Pulse Rate 95 Respiratory Rate 18 Respiratory Pattern Normal Pulse Ox 96 Oxygen Delivery Method Room Air Positive well nourished and well developed Constitutional Narrative: Patient sitting quietly in bed. He looks comfortable. Does not look dyspneic. He is alert appropriate and a good informant for details. General Appearance ED: well developed and NAD HEENT Reports moist mucous membranes HEENT Narrative: Shunt is visible and palpable on the right side. This was not pumped or pressed on. Eyes EOMs intact bilaterally General Eye ED: Negative for pale conjunctiva or scleral icterus Neck no JVD Resp normal respiratory effort and clear to auscultation bilaterally Auscultation: Negative for rales, rhonchi or wheezes Cardio regular rate and regular rhythm Rate: other Other Details: Patient's heart rate is about 90-95 on the monitor. Does appear to be in sinus rhythm with occasional PVCs. Rhythm: Negative for abnormal rhythm GI normal to inspection, nondistended, normoactive bowel sounds and non-tender Back/Spine no CVA tenderness Extremity General Extremety ED: Negative for edema or tenderness General Extremity: Negative for edema Neuro oriented x3 Neuro Narrative: Patient still has preserved strength and sensation. Sensorium / Orientation: alert; Negative for orientation impaired, lethargic or stuporous Psych mental status grossly normal Skin no rashes or lesions noted and no wounds Skin Narrative: Patient does have some slight pallor but has a history of anemia. MDM MDM MDM Narrative Medical decision making narrative: My independent interpretation of the patient's single view chest x-ray shows no acute process. There is some borderline cardiomegaly. Final reading shows no acute cardiopulmonary disease. My independent interpretation of the patient's CT scan of the head without contrast shows shunt in place with some ventriculomegaly. Radiology read is similar but they do note that he has stable ventriculomegaly. Patient CBC shows no acute abnormality. CBC shows baseline elevation in the creatinine. Glucose is reasonably well controlled at 189. [place] level is low. I talked with the patient. He states he was able to get up and go to the bathroom. His legs do feel stiff but that is normal for him. He would like to go home. He has follow-up arrangements and all his physicians are working on these problems. I think that is a reasonable issue. He does take Flexeril and Tylenol for pain and spasm and I will give him some of that here as he would be about due for it now. Lab Data Attestation: I reviewed the patient's lab results. Labs: Laboratory Results - last 24 hr 04/23/22 04/23/22 04/23/22 15:50 15:50 15:50 WBC 8.3 RBC 5.59 Hgb 13.7 Hct 44.8 MCV 80.1 MCH 24.5 L MCHC 30.6 L RDW Std Deviation 44.6 H RDW Coeff of Savi 15.6 H Plt Count 405 MPV 9.6 Immature Gran % (Auto) 1.100 H Neut % (Auto) 55.7 Lymph % (Auto) 30.1 [place] % (Auto) 11.1 H Eos % (Auto) 1.6 Baso % (Auto) 0.4 Absolute Neuts (auto) 4.6 Absolute Lymphs (auto) 2.50 Nucleated RBC % 0 Sodium 138 Potassium 3.9 Chloride 103 Carbon Dioxide 21.0 Anion Gap 14 BUN 17 Creatinine 1.34 H Estim Creat Clear Calc 58.84 Est GFR (MDRD) Af Amer 71 Est GFR (MDRD) Non-Af 58 L BUN/Creatinine Ratio 12.7 Glucose 189 H Calcium 9.6 [place] < 0.20 L Radiography Diagnostic Testing: Clinical Impression(s) from Imaging Studies Brain CT 04/23/22 15:45 IMPRESSION: Ventriculostomy catheter in place with stable ventriculomegaly. No acute intracranial changes. Electronically Signed: Alexander Martinez MD at 16:53 EST , Chest X-Ray 04/23/22 16:15 IMPRESSION: No radiographic evidence of acute cardiopulmonary disease. Electronically Signed: Alexander Martinez MD at 16:50 EST , EKG Initial EKG: Comments: My independent interpretation of EKG done for generalized weakness and history of CHF shows sinus rhythm with slightly tachycardic rate at 105. Nonspecific diffuse changes but no convincing evidence of infarct or ischemia. There is a PVC. UT interval, QRS duration are normal. QTC is long at 502 ms. There is similarities to 1 that we have but that his is back from 18 September 2017. Discharge Plan Triage Chief Complaint: Weakness ED Provider: Jimy Andrew Dx/Rx/DC Orders Clinical Impression: NPH (normal pressure hydrocephalus), Hyperglycemia, Leg muscle spasm Instructions: Muscle Spasm Prescriptions: No Action Tresiba FlexTouch U-100 100 unit/mL (3 mL) insulin pen 30 unit SC QDAY Qty: 27 11RF Humalog KwikPen Insulin 100 unit/mL insulin pen 30 unit SC TID Qty: 81 1RF furosemide 40 MG tablet 40 mg PO PRN PRN (Reason: EDEMA) carvedilol 25 MG tablet 25 mg PO BID atorvastatin 20 MG tablet 20 mg PO QHS sertraline 100 MG tablet 75 mg PO DAILY spironolactone 25 MG tablet 25 mg PO DAILY metformin 1,000 MG tablet 1,000 mg PO BIDCM gabapentin 300 MG capsule 300 mg PO TID omeprazole 20 MG capsule,delayed release(DR/EC) 20 mg PO DAILY ergocalciferol (vitamin D2) 50,000 UNIT capsule 50,000 unit PO QODAY losartan 100 MG tablet 100 mg PO DAILY lithium carbonate 300 MG tablet 300 mg PO DAILY fluticasone propionate 1 SPRAY spray,suspension 1 spray NASAL DAILY metoclopramide HCl 10 MG tablet 10 mg PO 4X/DAY cyanocobalamin (vitamin B-12) 1,000 MCG capsule 1,000 mcg PO DAILY valacyclovir 1,000 MG tablet 1,000 mg PO TID Qty: 21 0RF Primary Care Provider: Miller Monroe Referrals: Mliler Monroe MD [Primary Care Provider] - 3-5 Days Disposition Disposition: Home, Self Care
--- NOTE | 2022-04-23 15:45 | CT_ITS ---
INDICATION: Bilateral leg weakness, history of shunt EXAMINATION: CT BRAIN - CT Head or Brain W/O Contrast Injection TECHNIQUE: Multiple axial images were obtained of the head without intravenous contrast. A radiation dose optimization technique was used for this scan. IV Contrast dosage and agent: None. COMPARISON: 09/18/2017 FINDINGS: BRAIN PARENCHYMA: No intra- or extra-axial hemorrhage. No evidence of acute infarct. No intracranial mass or mass effect. Posterior fossa structures are unremarkable. Interval placement of right frontal ventriculostomy catheter with tip at the midline. CSF SPACES: Stable ventricular prominence. Basal cisterns are patent. CALVARIUM, SKULL BASE, PARANASAL SINUSES AND MASTOID AIR CELLS: Clear. No discrete lytic or blastic abnormalities. ORBITS: Both globes, extraocular muscles, optic nerves and retrobulbar fat appear unremarkable. CT/Brain/Head without Contrast IMPRESSION: Ventriculostomy catheter in place with stable ventriculomegaly. No acute intracranial changes. Electronically Signed: Alexander Martinez MD at 16:53 EST ,
--- NOTE | 2022-04-23 15:46 | EKG12_ITS ---
Test Reason : SOB Blood Pressure : / mmHG Vent. Rate : 105 BPM Atrial Rate : 105 BPM P-R Int : 166 ms QRS Dur : 104 ms QT Int : 380 ms P-R-T Axes : 039 011 056 degrees QTc Int : 502 ms Sinus tachycardia with occasional Premature ventricular complexes Nonspecific ST abnormality Abnormal ECG Confirmed by ARLENE QUIGLEY, NASIR ([id number]), web editor MUNDO CARRILLO ([id number]) on 04/26/2022 9:21:56 AM Referred By: WALTER Confirmed By:NASIR JACOBS MD
[2022-04-23 16:07] LABS: Absolute Neutrophil Count 4.6 X10^3/uL (2.0-7.7); Basophil# 0.03 X10^3/uL; Basophil% 0.4 % (0-1); Eosinophil# 0.13 X10^3/uL; Eosinophils% 1.6 % (0-5); Hematocrit 44.8 % (40-54); Hemoglobin 13.7 g/dL (13.0-16.5); Lymphocyte % 30.1 % (19-41); Mean Corp Hgb Conc 30.6 g/dL (32-36); Mean Corpuscular Hgb 24.5 pg (27.0-32.0); Mean Corpuscular Volume 80.1 fL (80-94); Mean Platelet Vol. 9.6 fl (6.2-12.0); Monocyte# 0.92 X10^3/uL; Monocyte% 11.1 % (0-10); NRBC Flagged by Analyzer 0 % (0-5); Neutrophil # 4.63 X10^3/uL (2.7-7.7); Neutrophil % 55.7 % (47-70); Platelet Count 405 K/mm3 (150-450); RBC Distribution Width CV 15.6 % (11.6-14.6); RBC Distribution Width SD 44.6 fl (35.1-43.9); Red Blood Count 5.59 M/mm3 (4.6-6.2); White Blood Count 8.3 K/mm3 (4.4-11.0)
[2022-04-23 16:15] LABS: Anion Gap 14 (5-15); BUN 17 mg/dL (7-18); BUN/Creat Ratio 12.7 RATIO (10-20); Calcium,Total 9.6 mg/dL (8.5-10.1); Chloride 103 mmol/L (98-107); Creatinine, Serum 1.34 mg/dL (0.70-1.30); EST Glomerular Filtration Rate 58 mL/min (>60); Est Glom Filt Rate - Afr Amer 71 mL/min (>60); Estimated Creatinine Clearance 58.84 ml/min; Glucose 189 mg/dL (74-106); Potassium 3.9 mmol/L (3.5-5.1); Sodium Level 138 mmol/L (136-145)
--- NOTE | 2022-04-23 16:15 | RAD_ITS ---
INDICATION: CHF EXAMINATION/TECHNIQUE: X-RAY - portable upright AP chest x-ray COMPARISON: 09/18/2017 FINDINGS: LINES/DEVICES: Shunt catheter passes over the right side of the chest and abdomen. LUNGS: Low lung volumes with mild bibasilar subsegmental atelectasis. No consolidation or pleural effusion. No vascular congestion. MEDIASTINUM AND CARDIOVASCULAR STRUCTURES: Cardiac silhouette stable within upper normal limits. BONES AND SOFT TISSUES: No acute changes. RAD/Chest 1 View (Portable) IMPRESSION: No radiographic evidence of acute cardiopulmonary disease. Electronically Signed: Alexander Martinez MD at 16:50 EST ,
[2022-04-23 17:09] LABS: Lithium < 0.20 mmol/L (0.60-1.20)
[2022-04-23 18:00] VITALS: BP 126/78; PULSE 88; RESP 16; O2SAT 99
[2022-04-23 19:00] VITALS: BP 134/76; PULSE 64; RESP 16; TEMP 36.3; O2SAT 100
[2022-04-23] MEDS: Acetaminophen 500 MG Tablet 1000 MG PO (19:09)
[2022-04-23] MEDS: cycloBENZAPRine HCl 10 MG Tablet PO (19:09)
== END 2022-04-23 19:16 | disposition home or self-care (01) ==
PROVIDERS: Emergency Provider Emergency Medicine; PCP Family Medicine; Visit Provider Emergency Medicine
DX: G91.8 Other hydrocephalus (principal); I50.32 Chronic diastolic (congestive) heart failure; E11.65 Type 2 diabetes mellitus with hyperglycemia; M62.838 Other muscle spasm; G47.33 Obstructive sleep apnea (adult) (pediatric)
CPT/HCPCS: 70450; 71045; 80048; 80178; 85025; 93005; 99285

== ENCOUNTER 2022-11-24 09:30 | Outpatient (RCR) | payer MEDICAID, SELFPAY ==
--- NOTE | 2022-11-16 13:41 | HP.PTEVAL ---
Patient's Visit Information Visit Information Visit Information: REGGIE ZAYAS is a 57 year old M referred to Physical Therapy by Dr. Estrella Torres MD with a diagnosis of NPH, gait instability, demyelinating neuropathy. Date of Evaluation: 11/16/22 Physical Therapist: NAZIA Moreira Visit Plan Frequency: 2x /Week Duration: 2 Months Plan: 2X/ week for 8 weeks for general LE strength, gait endurance, standing balance, functional strength with HEP Subjective Subjective: Goes by Atilio. Pt reports that his gait is off. He has [employer] hydrocepalus and had a shunt put in 1/5 years ago. Pt was still off balance after that. If he stands for more than a minute or two his back will lock up and cramp up and he will go to the ground without a walker and wc. He is able to walk longer with a rollator. He does own a rollator and he uses it daily. He uses the wc in public if he has to go through [employer] etc. They are still not sure what it going on. He has a spine surgeon consult and he is seeing pain management at [facility] in [place]. Injections of the back and neck did not help. 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 He is on one floor at home. He is unable to do stairs. He has fallen. He falls maybe once every 6 months and it seems to be really bad getting out of bed. He does not drive. He is on disability. wants PT to see if he can get stronger. He does not feel his toes too well as he will run over them with the rollator. Pain back pain: Pain Intensity (Out of 10): 4 Objective Objective: Gait: Able to walk with a rollator with shorter stride but swing leg passes stance leg B. His legs started to feel wobbly 1/2 way through PT dept but able to get back to eval room, not sure where feet are in space Sit to stand: Has to use arms to get out of a chair. Need UE support to lower self down to a chair. LE MMT: R hip flex 13.1 and L 10.9 R knee ext 9.8 and L 9.7 R knee flex 7.9 and L 9.2 Tinetti: 17 standing balance with feet together X 30 seconds but wobble and feet together with EC X 3 seconds and then opens eyes and reaches for rollator R patella DTR 1+/3 and L 2+/3 Balance/Special Test Scores Tinetti Balance Score: 9 Tinetti Gait Score: 8 Tinetti Balance & Gait Score: 17 Lower Extremity Functional Score: 14 Goals Goal 1:: I HEP Goal Time Frame: 6-8 Weeks Goal 2:: Increase LE strength (at time of the eval: LE MMT: R hip flex 13.1 and L 10.9 R knee ext 9.8 and L 9.7 R knee flex 7.9 and L 9.2) Goal Time Frame: 6-8 Weeks Goal 3:: Be able to sit to stand with using 1 arm to get out of the chair. Goal Time Frame: 6-8 Weeks Goal 4:: Increase balance (tinetti socre was 8 at eval) Goal Time Frame: 6-8 Weeks Goal 5:: Be able to use rollator and walk entire PT/[facility] [place] with no rest break Goal Time Frame: 6-8 Weeks Rehabilitation Potential Rehabilitation Potential: Good Anticipated Interventions Patient/Client Instruction: Educate patient on: Condition and Plan of Care For the Purpose of:: To improve muscle performance and motor function, To improve ability to perform ADL's, To increase tolerance to activity/condition/position, To improve performance and independence with ADL's, To decrease level of supervision to perform tasks, To improve ability of physical actions for home/community/work/leisure, To improve gait and locomotor functions, To improve health of tissue, To increase flexibility/ROM, To improve endurance, To improve balance and To improve safety with gait Therapeutic Exercise to Include: Strength training, Endurance training, Balance training, Postural training, Flexibilty training, Gait and locomotor training, Neuromotor development and Dynamic Lumbar Stabilization For the Purpose of:: To decrease pain, To increase ROM, To improve nutrient delivery to tissue, To improve muscle performance and motor function, To increase tolerance to activity/condition/position, To improve performance and independence with ADL's, To decrease level of supervision to perform tasks, To improve ability of physical actions for home/community/work/leisure, To improve gait and locomotor functions, To improve health of tissue, To decrease soft tissue restriction, To increase flexibility/ROM, To improve endurance, To improve balance and To improve safety with gait Functional Training to Include: Gait training For the Purpose of:: To improve gait and locomotor functions and To improve safety with gait Text: Thank you for the opportunity to evaluate your patient. For Medicare and Medicare HMO plans, please review the plan of care and approve it. It will need to be FAXED BACK to us at [phone] for Medicare purposes. For Medicare only, by signing this I certify the plan of care. Please let me know if there are questions or concerns regarding this plan of care. Physician Signature: Date:
--- NOTE | 2023-03-29 07:35 | HP.PT.NRP(2) ---
Patient Information Patient Information: REGGIE ZAYAS was seen in my office for initial evaluation on . The following Plan of Care was established for this patient: Last Seen Last Seen: This patient was last seen in our office . Pertinent comments regarding their Physical therapy will appear below: At this point I will be discontinuing this patient from physical therapy. I would be happy to see this patient again in the future if found appropriate by the physician. Thank you! Lilia Jaquez, MPT
== END 2022-11-24 19:00 | disposition home or self-care (01) ==
LOC: PT 09:30
PROVIDERS: PCP Family Medicine; Referring Provider Psychiatry & Neurology Neurology; Visit Provider Psychiatry & Neurology Neurology
DX: G91.2 (Idiopathic) normal pressure hydrocephalus (principal); R26.81 Unsteadiness on feet; G62.9 Polyneuropathy, unspecified
CPT/HCPCS: 97110; 97161

== ENCOUNTER → 2023-08-15 | Outpatient (CLI) | payer MEDICAID, SELFPAY | END | disposition home or self-care (01) | PROVIDERS: PCP Family Medicine | DX: G47.33 Obstructive sleep apnea (adult) (pediatric) (principal) | CPT/HCPCS: 95810 ==

== ENCOUNTER 2024-03-19 10:00 | Outpatient (RCR) | payer MEDICARE, MEDICAID, SELFPAY ==
--- NOTE | 2024-02-15 10:54 | HP.PTEVAL ---
Patient's Visit Information Visit Information Visit Information: REGGIE ZAYAS is a 59 year old M referred to Physical Therapy by Dr. Julius Langford MD with a diagnosis of spondylosis. Date of Evaluation: 02/15/24 Physical Therapist: Madi Jernigan, DPT, OCS, CSCS Visit Plan Frequency: 2x /Week Duration: 4-6 Weeks Plan: 2x/week for 6 weeks to start for 1. teach LB ROM on table and core /hip strength on table to HEP 2. Teach quad and HS and gastroc stretches to HEP 3. General overall body strength posture, LE standing to HEP 4. practicve walking as tolerated without AD in PT for balance. Pt gets very painful and nauseous if overdoes it so start carefully. Subjective Subjective: Dr. Langford sent over to see if therapy would help with LB. I can't stand for more than a few minutes. Can walk short distances 100 feet with rollator and then a chore due to pain and low back tightens. Pain gets intense 2-9/10 worse on feet. Sleep is interrupted occasionally but can sleep if switches positions. Uses rollator at home in mobile home and can manage. Uses WC out and about b/c he can't walk very far. Does not drive due to neuropathy in feet from DM. Has demyelinating disease. has many meds for this which helps somewhat including gabapentin. Sees Dr. Torres surgeon and has shunt form normal pressure hydrocephalus and it did not help. no orthopedic looked at back but maybe PA at [place], Has stenosis in lumbar and neck but afraid to do anything about it. Back pain and leg shaking limit walking. Dr Langford may give nerve block or injections soon. Not employed , full disability from health concerns. Lives with . in mobile unit with ramp. Basic ADLs: dresses self, bathroom self, shower in walk in with seat. No regular exercises. Hobbies: none, watches TV. Using rollator and WC for 3 yrs, has not walked without it in 4 yrs. Pain LBP: Pain Intensity (Out of 10): 2 Pain Intensity Range: 2 and 9 Objective Objective: Wheels self slowly back to PT in [facility], pushed back after a bit to save time. Trasnfers in and out of chair I with UE. Stands eo easily with feet together but wobbles, ec more wobbly but able. Walks without AD 6-8 steps today awkward and dangerous due to neuropathy and LOB but able. Then walks 175 feet with wh walker slight hunching mod I. Limiting factor and most notable thinkg today is back pain works up from 2/10 to 8/10 as he walks. he will eventually have to sit or he will get nauseous and spasm which we avoided today. FGA using wh walker is today was good. HS and quad and gastroc mod tight especially psoas into quad. Sensation below mid calf is poor to gross light touch B. relfexes 0/3 patella dn achilles today. strength in hips 3+ abd and ext and flexion with core instability but able to sit without support I. knee strength 4-/5, ankle strength 4-/5, able to heel raise and toe raise strength ernandez but poor balance. UE strength 4-/5. coordination to reciprocal toe and heel tap is poor. Balance/Special Test Scores Functional Gait Assessment Score: 14 % Disability: 53.3400 Oswestry Low Back Score: 31 Goals Goal 1:: I appropriate HEP for LB ROM, leg stretching and body strengthening incuding legs to minimize future roblems Goal Time Frame: 4-6 Weeks Goal 2:: Walk with wh walker 400 feet without increased pain Goal Time Frame: 4-6 Weeks Goal 3:: walk without AD 100 feet without pain or nausea Goal Time Frame: 4-6 Weeks Goal 4:: Pt feel pain and mobility are 50% better and 3/10 at worst Goal Time Frame: 4-6 Weeks Goal 5:: 20 LB oswestry Goal Time Frame: 4-6 Weeks Rehabilitation Potential Physical Therapy Diagnosis: weakness and tightness form multiple medical factors including spondylosis Rehabilitation Potential: Questionable Anticipated Interventions Patient/Client Instruction: Educate patient on: Condition and Plan of Care For the Purpose of:: To decrease pain, To increase ROM, To improve nutrient delivery to tissue, To improve muscle performance and motor function, To increase tolerance to activity/condition/position, To improve ability of physical actions for home/community/work/leisure and To improve gait and locomotor functions Therapeutic Exercise to Include: Strength training, Body mechanics, Postural training, Flexibilty training, Gait and locomotor training, Passive ROM, Active ROM and Dynamic Lumbar Stabilization For the Purpose of:: To decrease pain, To increase ROM, To improve nutrient delivery to tissue, To improve muscle performance and motor function, To increase tolerance to activity/condition/position, To improve gait and locomotor functions and To improve safety Text: Thank you for the opportunity to evaluate your patient. For Medicare and Medicare HMO plans, please review the plan of care and approve it. It will need to be FAXED BACK to us at [phone] for Medicare purposes. For Medicare only, by signing this I certify the plan of care. Please let me know if there are questions or concerns regarding this plan of care. Physician Signature: Date:
--- NOTE | 2024-05-14 14:08 | HP.PTDCNRP_ITS ---
Patient Information Patient Information: REGGIE ZAYAS was seen in my office for initial evaluation on 02/15/24. The following Plan of Care was established for this patient: POC Established Initial Frequency: 2x /Week Initial Duration: 4-6 Weeks Anticipated Interventions Patient/Client Instruction: Educate patient on: Condition and Plan of Care For the Purpose of:: To decrease pain, To increase ROM, To improve nutrient delivery to tissue, To improve muscle performance and motor function, To increase tolerance to activity/condition/position, To improve ability of p hysical actions for home/community/work/leisure and To improve gait and locomotor functions Therapeutic Exercise to Include: Strength training, Body mechanics, Postural training, Flexibilty training, Gait and locomotor training, Passive ROM, Active ROM and Dynamic Lumbar Stabilization For the Purpose of:: To decrease pain, To increase ROM, To improve nutrient delivery to tissue, To improve muscle performance and motor function, To increase tolerance to activity/condition/position, To improve gait and locomotor functions and To improve safety Last Seen Last Seen: This patient was last seen in our office 03/19/24. Pertinent comments regarding their Physical therapy will appear below: Pt seen 5 visits of POC but did not attend his last 3 visits. At this point, it has been over 6 weeks and I will discontinue du to nonattendance. At this point I will be discontinuing this patient from physical therapy. I would be happy to see this patient again in the future if found appropriate by the physician. Thank you! Madi Jernigan, DPT, OCS, CSCS Balance/Gait/Functional tests Balance/Special Test Scores Functional Gait Assessment Score: 14 % Disability: 53.3400 Oswestry Low Back Score: 31
== END 2024-03-19 19:00 | disposition home or self-care (01) ==
LOC: PT 10:00
PROVIDERS: PCP Family Medicine; Referring Provider Anesthesiology; Visit Provider Anesthesiology
DX: G37.9 Demyelinating disease of central nervous system, unspecified (principal); G91.2 (Idiopathic) normal pressure hydrocephalus; G62.89 Other specified polyneuropathies; R29.898 Other symptoms and signs involving the musculoskeletal system; M47.816 Spondylosis without myelopathy or radiculopathy, lumbar region
CPT/HCPCS: 97110; 97163

== ENCOUNTER 2024-10-08 15:41 | Emergency (ER) | payer MEDICARE, MEDICAID, SELFPAY ==
[2024-10-08] VITALS (9 sets, daily range): BP systolic 135–164; BP diastolic 80–97; PULSE 65–86; RESP 11–26; TEMP 37.1; O2SAT 92–100
--- NOTE | 2024-10-08 16:38 | EX.ED.DYSGE1 ---
HPI History of Present Illness Chief Complaint: Hypertension Narrative Narrative: 59-year-old male with multiple medical problems, recent cervical spine surgery at [facility] on September 25, approximately 2 weeks ago, presents with elevated blood pressure. He states that he has past medical history normal pressure hydrocephalus with shunt, diabetes, hypertension, had 1 episode of nausea and vomiting today. He states that this morning he was not feeling well. He took his medications for his blood pressure but vomited them back up afterwards. Additionally, he was able to take a Percocet for pain a few hours ago which stayed down. He had his home health nurse through the [facility] take his blood pressure and it was elevated at 170 systolic. He was asymptomatic with this without chest pain, no headache. No recent fevers or chills, no cough. He was concerned regarding the elevated blood pressure. He states when he is in pain he often has elevated blood pressure as well. No exacerbating or alleviating factors. [facility] Medical History ALTON (obstructive sleep apnea) Diabetic gastroparesis Cardiomyopathy Diverticulitis GERD (gastroesophageal reflux disease) Neuropathy Kidney stones High triglycerides High cholesterol HTN (hypertension) Diastolic congestive heart failure Type 2 diabetes mellitus Cataracts, bilateral Anxiety and depression Anemia Seasonal allergies Home Medications ?Medication ?Instructions ?Recorded ?Last Taken ?Type cyanocobalamin (vitamin B-12) 1,000 mcg PO DAILY 09/18/17 09/24/24 History 1,000 mcg capsule ergocalciferol (vitamin D2) 1,250 50,000 unit PO QODAY 09/18/17 09/24/24 History mcg (50,000 unit) capsule spironolactone 25 mg tablet 25 mg PO DAILY 09/18/17 10/08/24 History atorvastatin 40 mg tablet 40 mg PO DAILY 10/08/24 10/07/24 History baclofen 10 mg tablet 10 mg PO TID 10/08/24 10/07/24 History bupropion HCl 150 mg 24 hr tablet, 150 mg PO DAILY 10/08/24 10/08/24 History extended release carvedilol 12.5 mg tablet 12.5 mg PO BID 10/08/24 10/08/24 History dulaglutide 4.5 mg/0.5 mL 4.5 mg subcut QWEEK 10/08/24 10/07/24 History subcutaneous pen injector (Trulicity) empagliflozin 25 mg tablet 25 mg PO DAILY 10/08/24 10/08/24 History (Jardiance) flash glucose sensor (FreeStyle 10/08/24 Unknown History Zion 2 Sensor kit) fluoxetine 40 mg capsule 80 mg PO DAILY 10/08/24 10/08/24 History furosemide 20 mg tablet 20 mg PO DAILY 10/08/24 10/08/24 History gabapentin 600 mg tablet 1,200 mg PO Q12H 10/08/24 10/08/24 History insulin glargine U-300 conc 300 44 unit subcut DAILY 10/08/24 10/07/24 History unit/mL (1.5 mL) subcutaneous pen (TouCircular SoloStar U-300 Insulin) ivabradine 7.5 mg tablet 7.5 mg PO BID 10/08/24 10/08/24 History ketorolac 10 mg tablet 10 mg PO Q8H PRN pain 10/08/24 10/08/24 History metformin 500 mg tablet,extended 1,000 mg PO BID 10/08/24 10/08/24 History release 24 hr omeprazole 40 mg capsule,delayed 40 mg PO BID 10/08/24 10/08/24 History release oxycodone-acetaminophen 5 mg-325 1 tab PO 4X/DAY PRN PRN pain 10/08/24 10/08/24 History mg tablet sacubitril 49 mg-valsartan 51 mg 1 tab PO BID 10/08/24 10/08/24 History tablet (Entresto) sodium bicarbonate 650 mg tablet 650 mg PO DAILY 10/08/24 10/08/24 History tamsulosin 0.4 mg capsule 0.8 mg PO DAILY 10/08/24 10/07/24 History Allergy/AdvReac Type Severity Reaction Status Date / Time lisinopril AdvReac Other Verified 10/08/24 15:52 Surgical History H/O hernia repair Social History Smoking Status: Never smoker alcohol intake: current substance use type: does not use ROS ROS ED ROS Narrative Review of systems positive for elevated blood pressure. Positive nausea and vomiting once this morning. Able to tolerate medications currently. Denies chest pain, shortness of breath, or abdominal pain. Positive postsurgical neck pain. EXAM Physical Exam Narrative Exam Narrative: Afebrile. Vital signs noted. Nontoxic-appearing. Cardiovascular examination reveals regular rate and rhythm. Lungs are clear to auscultation bilaterally. Abdomen is soft, nontender with out guarding or rebound. Positive bowel sounds. Neurological examination nonfocal, nonlateralizing. Inspection of the cervical spine area does show a surgical wound without dehiscence and minimal hyperemia. No crepitance. Const Vital Signs: 10/08/24 15:49 10/08/24 16:26 10/08/24 17:00 Temperature 98.8 F Temperature Source Oral Pulse Rate 86 67 Respiratory Rate 18 16 Respiratory Effort Normal Non-Labored Respiratory Pattern Normal Blood Pressure 151/97 H 164/83 H Blood Pressure Mean 115 110 Pulse Ox 100 96 Oxygen Delivery Method Room Air 10/08/24 17:39 10/08/24 17:45 10/08/24 18:00 Temperature Temperature Source Pulse Rate 74 65 70 Respiratory Rate 17 26 H 14 Respiratory Effort Respiratory Pattern Blood Pressure 154/80 H 161/83 H Blood Pressure Mean 101 106 Pulse Ox 98 96 92 Oxygen Delivery Method 10/08/24 18:15 10/08/24 18:30 Temperature Temperature Source Pulse Rate 71 77 Respiratory Rate 11 L 14 Respiratory Effort Respiratory Pattern Blood Pressure 151/86 H 149/81 H Blood Pressure Mean 102 100 Pulse Ox 93 93 Oxygen Delivery Method MDM MDM MDM Narrative Medical decision making narrative: Patient was concerned about his elevated blood pressure although he essentially asymptomatic with this. The differential diagnosis includes hypertensive exacerbation secondary to him vomiting his medication/not being able to take it. It may also be a pain reaction. Patient seems mildly anxious regarding his elevated blood pressure. Currently it is 151/97. I do not feel that he needs any immediate medication currently. I reviewed his medication list as well. He takes carvedilol, spironolactone, and furosemide listed. I will check his basic laboratory work as well and he was administered morphine and ondansetron for analgesia. I reviewed his laboratory work and he has normal white count of 9.9 with hemoglobin stable at 12.3, hematocrit 38.3, platelet count normal at 412. Sodium normal at 138 with potassium 4.3, BUN of 15 and creatinine 1.0, glucose slightly elevated at 177 but anion gap normal at 15 so I doubt diabetic ketoacidosis. Lipase normal at 24 so I doubt pancreatitis. Repeat examination shows his blood pressure 142 systolic. He states he feels the same. I do not feel that he requires observation or admission at this time. I feel that he can take his home medications for his blood pressure and have that rechecked. He states he has Zofran at home. I feel he be discharged to follow-up. Return instructions to the emergency department were reviewed. Disposition is discharged home in stable condition. History & Record Review Discussion w/independent historian: Patient Lab Data Attestation: I reviewed the patient's lab results. Labs: Laboratory Results - last 24 hr 10/08/24 16:48 WBC 9.9 RBC 4.66 Hgb 12.3 L Hct 38.3 L MCV 82.2 MCH 26.4 L MCHC 32.1 RDW Std Deviation 40.1 RDW Coeff of Savi 13.5 Plt Count 412 MPV 9.3 Immature Gran % (Auto) 1.900 H Neut % (Auto) 71.0 H Lymph % (Auto) 18.6 L [place] % (Auto) 6.8 Eos % (Auto) 1.3 Baso % (Auto) 0.4 Absolute Neuts (auto) 7.0 Absolute Lymphs (auto) 1.85 Nucleated RBC % 0 Sodium 138 Potassium 4.3 Chloride 104 Carbon Dioxide 19.1 L Anion Gap 15 BUN 15 Creatinine 1.00 Est GFR (MDRD) Non-Af 87 BUN/Creatinine Ratio 14.9 Glucose 177 H Calcium 9.9 Lipase 24 Discharge Plan Triage Chief Complaint: Hypertension Other Complaint: Nausea/Vomiting ED Provider: Isaiah Lainez Dx/Rx/DC Orders Prescriptions: No Action spironolactone 25 MG tablet 25 mg PO DAILY ergocalciferol (vitamin D2) 50,000 UNIT capsule 50,000 unit PO QODAY cyanocobalamin (vitamin B-12) 1,000 MCG capsule 1,000 mcg PO DAILY fluoxetine 40 mg capsule 80 mg PO DAILY atorvastatin 40 mg tablet 40 mg PO DAILY gabapentin 600 mg tablet 1,200 mg PO Q12H carvedilol 12.5 mg tablet 12.5 mg PO BID omeprazole 40 mg capsule,delayed release(DR/EC) 40 mg PO BID tamsulosin 0.4 mg capsule 0.8 mg PO DAILY sodium bicarbonate 650 mg tablet 650 mg PO DAILY baclofen 10 mg tablet 10 mg PO TID furosemide 20 mg tablet 20 mg PO DAILY metformin 500 mg tablet extended release 24 hr 1,000 mg PO BID bupropion HCl 150 mg tablet extended release 24 hr 150 mg PO DAILY ivabradine 7.5 mg tablet 7.5 mg PO BID insulin glargine U-300 conc [Toujeo SoloStar U-300 Insulin] 300 unit/mL (1.5 mL) insulin pen 44 unit subcut DAILY Rx Instructions: pm Entresto 49-51 mg tablet 1 tab PO BID Trulicity 4.5 mg/0.5 mL pen injector 4.5 mg SUBCUT QWEEK Patient Comments: [NO ORIGINAL SIG] oxycodone-acetaminophen 5-325 mg tablet 1 tab PO 4X/DAY PRN PRN (Reason: pain) ketorolac 10 mg tablet 10 mg PO Q8H PRN (Reason: pain) Jardiance 25 mg tablet 25 mg PO DAILY (DME) FreeStyle Zion 2 Sensor Kit MISCELLANEOUS Patient Comments: [NO ORIGINAL SIG] Primary Care Provider: Miller Monroe Referrals: Miller Monroe MD [Primary Care Provider] - Print Language: Afghan
[2024-10-08 16:58] LABS: Hematocrit 38.3 % (40-54); Hemoglobin 12.3 g/dL (13.0-16.5); Immature Granulocytes Count 0.190 X10^3/uL (0.0-0.0); Mean Corp Hgb Conc 32.1 g/dL (32-36); Mean Corpuscular Volume 82.2 fL (80-94); Mean Platelet Vol. 9.3 fl (6.2-12.0); NRBC Flagged by Analyzer 0 % (0-5); Platelet Count 412 K/mm3 (150-450); RBC Distribution Width CV 13.5 % (11.6-14.6); RBC Distribution Width SD 40.1 fl (35.1-43.9); Red Blood Count 4.66 M/mm3 (4.6-6.2); White Blood Count 9.9 K/mm3 (4.4-11.0)
[2024-10-08 17:46] LABS: Lipase 24 U/L (13-75)
[2024-10-08 17:52] LABS: Anion Gap 15 (5-15); BUN 15 mg/dL (4-19); BUN/Creat Ratio 14.9 RATIO (10-20); Calcium,Total 9.9 mg/dL (7.6-11.0); Carbon Dioxide 19.1 mmol/L (21.0-32.0); Chloride 104 mmol/L (98-108); Glucose 177 mg/dL (70-99); Potassium 4.3 mmol/L (3.3-5.1)
== END 2024-10-08 19:17 | disposition home or self-care (01) ==
PROVIDERS: Emergency Provider Emergency Medicine; PCP Family Medicine; Visit Provider Emergency Medicine
DX: R11.2 Nausea with vomiting, unspecified (principal); I50.32 Chronic diastolic (congestive) heart failure; I11.0 Hypertensive heart disease with heart failure; G91.2 (Idiopathic) normal pressure hydrocephalus; E11.43 Type 2 diabetes mellitus with diabetic autonomic (poly)neuropathy; Z79.4 Long term (current) use of insulin; Z98.2 Presence of cerebrospinal fluid drainage device; K21.9 Gastro-esophageal reflux disease without esophagitis; E78.2 Mixed hyperlipidemia; F41.9 Anxiety disorder, unspecified; F32.A Depression, unspecified; K31.84 Gastroparesis; G47.33 Obstructive sleep apnea (adult) (pediatric); Z79.82 Long term (current) use of aspirin; Z79.85 Long-term (current) use of injectable non-insulin antidiabetic drugs; Z79.84 Long term (current) use of oral hypoglycemic drugs; Z79.899 Other long term (current) drug therapy; Z98.890 Other specified postprocedural states
CPT/HCPCS: 80048; 83690; 85025; 96374; 96375; 99285; A4216; J2405